=== PATIENT | female | born 1980 | race Caucasian/White ===

== ENCOUNTER 2019-12-30 02:40 | Inpatient (IN) | payer BC ==
[~2019-12-30] VITALS: Ht 154.9 cm; Wt 83.9 kg
--- NOTE | 2019-12-30 02:46 | NUR ---
PT BIBRA C/O MIDSTERNAL PRESSURE-LIKE CHEST PAIN RADIATING TO LEFT ARM. PT ENDORSES NUMBNESS ON THE LLE. -SOB. +N/V +HEREDIA. 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
[2019-12-30] MEDS ORDERED: ASPIRIN 81 MG TAB.CHEW PO ONE (03:00)
[2019-12-30] MEDS ORDERED: oxyCODONE/APAP (5/325 MG) 1 UDTAB TABLET PO ONE ×2 (03:00→05:00)
[2019-12-30] MEDS ORDERED: ONDANSETRON 4 MG TAB.RAPDIS SL ONE (03:00)
--- NOTE | 2019-12-30 03:00 | NUR ---
OXYGEN FURNACE OPERATOR AT BEDSIDE FOR BLOOD DRAW
[2019-12-30] MEDS ORDERED: oxyCODONE/APAP (5/325 MG) 1 UDTAB TABLET ONE ×2 (03:01→05:05)
[2019-12-30] MEDS ORDERED: ASPIRIN 81 MG TAB.CHEW ONE (03:02)
[2019-12-30] MEDS ORDERED: ONDANSETRON 4 MG TAB.RAPDIS ONE (03:02)
--- NOTE | 2019-12-30 03:02 | NUR ---
EKG AT BEDSIDE
[2019-12-30 03:13] LABS: BASOPHILS % (AUTO) 0.6 % (0.0-2.0); EOSINOPHILS % (AUTO) 2.9 % (0.0-6.0); HEMATOCRIT 40 % (33-45); LYMPHOCYTES % (AUTO) 28.8 % (20.0-44.0); MEAN CORPUSCULAR HGB CONC 33 g/dl (31.0-36.0); MEAN CORPUSCULAR VOLUME 81 fL (82-100); MONOCYTES # (AUTO) 0.4 /CMM (0.1-1.30); MONOCYTES % (AUTO) 5.3 % (2.0-12.0); NEUTROPHILS # (AUTO) 4.2 /CMM (1.8-8.9); NEUTROPHILS % (AUTO) 62.4 % (43.0-81.0); PLATELET COUNT (AUTO) 250 /CMM (150-450); RED BLOOD CELL COUNT(AUTO) 4.91 MIL/uL (4.0-5.2); WHITE BLOOD COUNT (AUTO) 6.8 K/uL (4.3-11.0)
[2019-12-30 03:26] LABS: CALCIUM, SERUM 8.9 mg/dL (8.5-10.1); CREATININE 0.6 mg/dL (0.6-1.3); POTASSIUM 3.5 mmol/L (3.5-5.1)
--- NOTE | 2019-12-30 03:29 | NUR ---
DR TAVERAS AT BEDSIDE
[2019-12-30] MEDS ORDERED: NITROGLYCERIN PACKET 1 GM PACKET ONE (03:53)
[2019-12-30] MEDS ORDERED: IV NS 0.9% 500 ML BAG IV ONE (04:00)
[2019-12-30] MEDS ORDERED: NITROGLYCERIN PACKET 1 GM PACKET TD ONE (04:00)
--- NOTE | 2019-12-30 04:00 | NUR ---
XRAY AT BEDSIDE
[2019-12-30 04:16] VITALS: BP 111/40
[2019-12-30] MEDS ORDERED: LEVO100T9 PO (04:26)
[2019-12-30] MEDS ORDERED: CETI-110 PO (04:27)
--- NOTE | 2019-12-30 04:27 | NUR ---
DR TAVERAS AT BEDSIDE
--- NOTE | 2019-12-30 04:33 | NUR ---
EKG AT BEDSIDE
[2019-12-30] MEDS ORDERED: ENOXAPARIN SODIUM 80 MG/0.8 ML DISP.SYRIN SQ ONE ×2 (04:43→05:00)
[2019-12-30] MEDS ORDERED: MORPHINE SULFATE INJ 4 MG/ML DISP.SYRIN ONE (04:44)
[2019-12-30] MEDS ORDERED: MORPHINE SULFATE INJ 2 MG/ML DISP.SYRIN IV ONE (05:00)
--- NOTE | 2019-12-30 06:11 | NUR ---
NURSE WILL CALL BACK FOR REPORT
[2019-12-30] MEDS ORDERED: ATORVASTATIN 40 MG TABLET PO SCH ×2 (06:30→09:00)
[2019-12-30] MEDS ORDERED: ONDANSETRON HCL/PF 4 MG/2 ML VIAL IVP PRN (06:30)
[2019-12-30] MEDS ORDERED: ACETAMINOPHEN 325 MG TABLET PO PRN (06:30)
[2019-12-30] MEDS ORDERED: HYDROCODONE/APAP 5/325MG 1 EACH TABLET PO PRN (06:30)
--- NOTE | 2019-12-30 06:30 | NUR ---
[facility] CRITICAL RESULT, TROPONIN [phone]. DR KEITH, DR ESPINOZA NOTIFIED.
--- NOTE | 2019-12-30 06:35 | NUR ---
REPORT GIVEN TO DAVID MARVIN
--- NOTE | 2019-12-30 06:55 | NUR ---
PT TRANSFERRED TO ROOM IN STABLE CONDITION
--- NOTE | 2019-12-30 07:15 | NUR ---
RN ADMITTING NOTES ADMITTING A 39 Y/O FEMALE, A/O X4. ON ROOM AIR, TOLERATING WELL, ABLE TO MAKE NEEDS KNOWN. PATIENT ORIENTED TO ROOM, UNIT AND STAFF. IV ACCESS ON LAC #20, PATENT AND INTACT. V/S TAKEN, STABLE AND RECORDED. SKIN IS INTACT. LUNGS CLEAR ON AUSCULTATION. SAFETY MEASURES IN PLACE, BED IN LOWEST LOCKED POSITION WITH SIDE RAILS UP X2. CALL LIGHT PLACED WITHIN EASY REACH. WILL CONTINUE TO MONITOR.
[2019-12-30] MEDS ORDERED: PANTOPRAZOLE 40 MG TABLET.DR PO SCH (07:30)
--- NOTE | 2019-12-30 07:40 | NUR ---
RN NOTES SEEN AND EXAMINED BY DR. HERNANDEZ, ORDERED CT ANGIO OF HEART. CONSENT SIGNED.
--- NOTE | 2019-12-30 08:25 | NUR ---
DAVID NOTES PATIENT CHANGED HER MIND AND REFUSED TO TAKE ATORVASTATIN, WASTED THE MED PER PROTOCOL. WITNESS BY DAVID VIVEROS. Addendum: 12/30/19 at 0959 by DOMINIC HERNANDEZ RN EXPLAINED THE RISKS AND BENEFITS BUT PATIENT STILL REFUSED MEDICATION.
[2019-12-30] MEDS ORDERED: ASPIRIN EC 325 MG TABLET.DR PO SCH (09:00)
[2019-12-30] MEDS ORDERED: LEVOTHYROXINE SODIUM 100 MCG TABLET PO SCH (09:00)
--- NOTE | 2019-12-30 10:15 | NUR ---
DAVID GARZA NOTES PATIENT WANTS TO LEAVE AMA, PER PATIENT SHE WANTS TO GO TO ANOTHER HOSPITAL BECAUSE ONE OF HER FAMILY FRIEND IS A [employer] MANAGER AT THAT HOSPITAL. EXPLAINED THE RISKS BUT PATIENT STILL REFUSED. PATIENT IS A/O X4. PATIENT SIGNED THE AMA FORM. ASSISTED TO GO TO THE LOBBY, WENT AMBULATORY AND PICKED UP BY .
[2019-12-30] MEDS ORDERED: METOPROLOL TARTRATE 50 MG TABLET PO SCH (12:00)
[2019-12-30] MEDS ORDERED: ENOXAPARIN SODIUM 80 MG/0.8 ML DISP.SYRIN SQ SCH (21:00)
== END 2019-12-30 10:10 | disposition left against medical advice (07) | DRG 282 ==
LOC: ER 02:43 → TELE 06:18
PROVIDERS: ADMIT Hospitalist; ATTEND Hospitalist
DX: I21.4 Non-ST elevation (NSTEMI) myocardial infarction (principal); E03.9 Hypothyroidism, unspecified; E66.9 Obesity, unspecified; Z91.19 Patient's noncompliance with other medical treatment and regimen; Z68.35 Body mass index [BMI] 35.0-35.9, adult
CPT/HCPCS: 36415; 71045-TC; 80048-TC; 84484-TC; 85025-TC; 87081-TC; 93307-TC; G0378; J1650; J2270; J7040; Q0162

== ENCOUNTER 2020-01-09 15:37 | Emergency (ER) | payer BC ==
[~2020-01-09] VITALS: Ht 154.9 cm; Wt 83.9 kg
[~2020-01-09 15:37] MED LIST: CETI-110 PO; LEVO100T9 PO
--- NOTE | 2020-01-09 15:56 | NUR ---
PT REC'D TO ER VIA EMS C/O CHEST PAIN 1 HOUR AGO PT WAS LYING DOWN 8/10 IV STARTED 20G LABS DRAWN SENT TO LAB AWAITING EVALUATION BY ER PROVIDER. PT HAD STENT PLACED 1 WEEK AGO AT [facility]
--- NOTE | 2020-01-09 15:59 | NUR ---
UA SENT TO LAB
[2020-01-09] MEDS ORDERED: ASPIRIN 81 MG TAB.CHEW PO ONE (16:00)
[2020-01-09] MEDS ORDERED: ONDANSETRON HCL/PF 4 MG/2 ML VIAL IVP ONE (16:00)
[2020-01-09] MEDS ORDERED: MORPHINE SULFATE INJ 2 MG/ML DISP.SYRIN IV ONE ×2 (16:00→17:00)
[2020-01-09] MEDS ORDERED: IV NS 0.9% 1,000 ML BAG IV ONE (16:00)
[2020-01-09] MEDS ORDERED: MORPHINE SULFATE INJ 2 MG/ML DISP.SYRIN ONE ×2 (16:08→16:37)
[2020-01-09] MEDS ORDERED: ONDANSETRON HCL/PF 4 MG/2 ML VIAL ONE (16:09)
[2020-01-09] MEDS ORDERED: ASPIRIN 81 MG TAB.CHEW ONE ×2 (16:09)
[2020-01-09 16:12] LABS: BASOPHILS % (AUTO) 0.4 % (0.0-2.0); HEMATOCRIT 40 % (33-45); HEMOGLOBIN 13.1 g/dL (11.5-14.8); LYMPHOCYTES # (AUTO) 1.6 /CMM (0.8-4.8); LYMPHOCYTES % (AUTO) 21.6 % (20.0-44.0); MEAN CORPUSCULAR HGB CONC 33 g/dl (31.0-36.0); MEAN CORPUSCULAR VOLUME 82 fL (82-100); MONOCYTES # (AUTO) 0.4 /CMM (0.1-1.30); MONOCYTES % (AUTO) 6.1 % (2.0-12.0); NEUTROPHILS % (AUTO) 67.9 % (43.0-81.0); PLATELET COUNT (AUTO) 312 /CMM (150-450); WHITE BLOOD COUNT (AUTO) 7.3 K/uL (4.3-11.0)
--- NOTE | 2020-01-09 16:20 | NUR ---
MEDS GIVEN PER MD ORDER VSS
[2020-01-09 16:36] LABS: CALCIUM, SERUM 8.9 mg/dL (8.5-10.1); CARBON DIOXIDE 29 mmol/L (21-32); CHLORIDE 104 mmol/L (98-107); CREATININE 0.7 mg/dL (0.6-1.3); GLUCOSE 114 mg/dL (74-106); POTASSIUM 3.8 mmol/L (3.5-5.1); SODIUM SERUM 142 mmol/L (136-145); UREA NITROGEN, BLOOD 11 mg/dL (7-18)
--- NOTE | 2020-01-09 16:39 | NUR ---
PT C/O PAIN STILL 02/05 MS 2 MGIVP PER MD ORDER
[2020-01-09] MEDS ORDERED: HEPARIN INFUSION/D5W 500 ML IV ONE (16:48)
[2020-01-09] MEDS ORDERED: HEPARIN SODIUM, PORCINE 5000 UNITS/1 ML VIAL ONE (16:49)
--- NOTE | 2020-01-09 17:00 | NUR ---
SPOKED TO PTS HEAD OF STOCK PT WILL BE TRANSFER TO [facility].
[2020-01-09] MEDS ORDERED: HEPARIN SODIUM, PORCINE 5000 UNITS/1 ML VIAL IV ONE (17:30)
[2020-01-09] MEDS ORDERED: HEPARIN INFUSION/D5W 500 ML IV PRN (17:30)
--- NOTE | 2020-01-09 17:33 | NUR ---
PT AMB WITH ASSISTANCE TO BATHROOM . BACK TO BED MONITORS APPLIED PEND TING TRANSFER TO [facility] .ER HEPARIN GIVEN PER PROTOCOL
[2020-01-09 17:37] VITALS: BP 132/86
--- NOTE | 2020-01-09 17:37 | NUR ---
CALLED 911 FOR TRANSFER TO [facility] PER DR. SUTHERLAND.
[2020-01-09] MEDS ORDERED: METO25TA4 PO (17:38)
[2020-01-09] MEDS ORDERED: CLOP75TA15 PO (17:38)
[2020-01-09] MEDS ORDERED: ATOR40TA PO (17:38)
--- NOTE | 2020-01-09 17:51 | NUR ---
TRANSFER TO [facility] WITH DAKOTA HERNANDEZ
== END 2020-01-09 17:57 | disposition short-term general hospital (02) ==
LOC: ER 15:38
DX: I24.9 Acute ischemic heart disease, unspecified (principal); E03.9 Hypothyroidism, unspecified; R94.31 Abnormal electrocardiogram [ECG] [EKG]; E86.0 Dehydration; I25.10 Atherosclerotic heart disease of native coronary artery without angina pectoris; Z98.890 Other specified postprocedural states; Z88.0 Allergy status to penicillin; Z79.899 Other long term (current) drug therapy; Z95.5 Presence of coronary angioplasty implant and graft
CPT/HCPCS: 36415; 71045; 80048; 84484; 84703; 85025; 85610; 85730; 93005 ×3; 96361; 96374; 96375; 99285; J1644 ×2; J2270 ×2; J2405; J7030